=== PATIENT | female | born 1985 | race Caucasian/White ===

== ENCOUNTER 2023-05-19 16:19 | Inpatient (IN) | payer MEDICAID ==
[2023-05-19] MEDS ORDERED: Bisacodyl 10 MG Supp RECTAL PRN (16:21)
[2023-05-19] MEDS ORDERED: Water For Irrigation,Sterile 1,000 ML Container IRR PRN (16:21)
[2023-05-19] MEDS ORDERED: Lanolin 100% Cream 7 GM Tube TOP PRN (16:21)
[2023-05-19] MEDS ORDERED: ceFAZolin 2 GM in Sodium Chloride 0.9% 50 ML IV ONE (16:21)
[2023-05-19] MEDS ORDERED: Sodium Chloride 0.9% 20 ML SDV IV PRN (16:21)
[2023-05-19] MEDS ORDERED: Tranexamic Acid IN NACL,ISO-OS 1,000 MG in Premix Bag 1 BAG IV PRN ×2 (16:21)
[2023-05-19] MEDS ORDERED: Benzocaine/Menthol 20%-0.5% Spray 78 GM Cannister TOP PRN (16:21)
[2023-05-19] MEDS ORDERED: Methylergonovine 0.2 MG/1 ML Amp IM PRN (16:21)
[2023-05-19] MEDS ORDERED: Sodium Chloride 0.9% 10 ML Syringe FLUSH PRN (16:21)
[2023-05-19] MEDS ORDERED: Sodium Chloride 0.9% 2.5 ML Syringe FLUSH PRN (16:21)
[2023-05-19] MEDS ORDERED: Nalbuphine 10 MG/0.5 ML Syringe IVPUSH PRN (16:21)
[2023-05-19] MEDS ORDERED: Lidocaine 1% 50 ML MDV INJECT PRN (16:21)
[2023-05-19] MEDS ORDERED: Misoprostol 200 MCG Tab PO PRN (16:21)
[2023-05-19] MEDS ORDERED: Terbutaline 1 MG/ML SDV SUBCUT PRN (16:21)
[2023-05-19] MEDS ORDERED: Witch Hazel Medicated Pads 40/Jar TOP PRN (16:21)
[2023-05-19] MEDS ORDERED: Carboprost Tromethamine 250 MCG/1 mL Vial IM PRN (16:21)
[2023-05-19] MEDS ORDERED: Oxytocin/0.9 % Sodium Chloride 30 UNIT/500 ML BAG IV SCH ×2 (16:30)
[2023-05-19] MEDS ORDERED: Lactated Ringers 1,000 ML IV SCH (16:30)
[2023-05-19 16:42] LABS: BASOPHILS ABSOLUTE AUTO 0.03 K/uL (0.00-0.20); BASOPHILS PERCENT AUTO 0.2 % (0.0-1.0); HEMATOCRIT 39.6 % (37.0-47.0); IMMATURE GRAN PERCENT AUTO 0.6 % (0.0-0.4); LYMPHOCYTES ABSOLUTE AUTO 0.72 K/uL (1.00-4.80); LYMPHOCYTES PERCENT AUTO 4.4 % (24.0-44.0); MEAN CORPUSCULAR HEMOGLOBIN 26.3 pg (28.0-32.0); MEAN CORPUSCULAR HGB CONC 32.8 g/dL (32.0-36.0); MONOCYTES ABSOLUTE AUTO 0.49 K/uL (0.00-0.80); NEUTROPHILS ABSOLUTE AUTO 14.86 K/uL (1.80-7.70); NEUTROPHILS PERCENT AUTO 91.8 % (41.0-71.0); PLATELET COUNT,PLT 198 K/uL (150-400); RED BLOOD CELL COUNT 4.95 M/uL (4.10-5.30)
[2023-05-19 16:54] LABS: AMPHETAMINES SCREEN, URINE NEGATIVE (CUTOFF=500); BARBITURATE SCREEN,URINE NEGATIVE (CUTOFF=200); BENZODIAZEPINES SCREEN,URINE NEGATIVE (CUTOFF=150); BUPRENORPHINE SCREEN,URINE NEGATIVE (CUTOFF=10); METHADONE SCREEN, URINE NEGATIVE (CUTOFF=200); METHAMPHETAMINES SCREEN, URINE NEGATIVE (CUTOFF=500); OXYCODONE SCREEN,URINE NEGATIVE (CUT0FF=100); PCP SCREEN,URINE NEGATIVE (CUTOFF=25); THC SCREEN,URINE 20 NG/ML PRESUMPTIVE POSITIVE (CUTOFF=50)
[2023-05-19 16:58] LABS: HEMOGLOBIN A1C 8.5 %
[2023-05-19 17:10] LABS: A/G RATIO 0.5 (0.9-1.6); ALANINE AMINOTRANSFERASE,ALT 27 IU/L (14-63); ALBUMIN 2.4 g/dL (3.4-5.0); ALKALINE PHOSPHATASE 244 U/L (46-116); ASPARTATE AMNIOTRANSFERASE,AST 23 IU/L (15-37); BILIRUBIN TOTAL 0.5 mg/dL (0.2-1.0); BLOOD UREA NITROGEN,BUN 9 mg/dL (7.0-18.0); CALCIUM 8.9 mg/dL (8.5-10.1); CHLORIDE,CL 97 mmol/L (98-107); CREATININE 0.9 mg/dL (0.6-1.0); EST CRCL DRUG DOSING (CG) 75.34 mL/min; GLUCOSE RANDOM 223 mg/dL (74-106); PROTEIN TOTAL,TP 7.7 g/dL (6.4-8.2); SODIUM,NA 130 mmol/L (136-145)
[2023-05-19 17:11] LABS: ESTIMATED GFR 86 mL/min (>60)
[2023-05-19] MEDS: Ondansetron 4 MG/2 ML SDV IVPUSH PRN (17:29)
[2023-05-19] MEDS: Insulin Regular in 0.9 % NACL 100 ML IV SCH ×2 (17:30→19:33)
[2023-05-19] MEDS ORDERED: Dextrose 5%-0.9% NaCl 1,000 ML IV SCH (18:00)
[2023-05-19 18:17] LABS: C. TRACHOMATIS BY PCR NOT DETECTED; N. GONORRHOEAE BY PCR NOT DETECTED
[2023-05-19 19:38] LABS: BILIRUBIN,URINE NEGATIVE (NEGATIVE); COLOR,URINE YELLOW; GLUCOSE,URINE 100 mg/dL (NEGATIVE); KETONES,URINE >=80 mg/dL (NEGATIVE); LEUKOCYTE ESTERASE,URINE SMALL (NEGATIVE); NITRITE,URINE POSITIVE (NEGATIVE); OCCULT BLOOD,URINE NEGATIVE (NEGATIVE); PROTEIN,URINE TRACE mg/dL (NEGATIVE); UROBILINOGEN,URINE 0.2 EU/dL (<2.0)
[2023-05-19 19:40] LABS: APPEARANCE,URINE HAZY
[2023-05-20] MEDS ORDERED: ceFAZolin 2 GM in Sodium Chloride 0.9% 50 ML IV ONE (00:03)
[2023-05-20] MEDS ORDERED: Misoprostol 200 MCG Tab ONE (03:06)
[2023-05-20] MEDS ORDERED: Omeprazole 20 MG Cap.CR PO ONE (03:47)
[2023-05-20 04:37] LABS: PH,UMBILICAL ARTERIAL 7.185 (7.18-7.38)
[2023-05-20 04:38] LABS: PH,UMBILICAL VENOUS 7.229 (7.25-7.45)
[2023-05-20] MEDS ORDERED: 50% Dextrose in Water 50 ML Syringe IVPUSH PRN ×2 (04:39→13:09)
[2023-05-20] MEDS ORDERED: Glucagon,Human Recombinant 1 MG Vial IM PRN ×2 (04:39→13:09)
[2023-05-20] MEDS ORDERED: cefTRIAXone 2 GM in Sodium Chloride 0.9% 50 ML IV SCH (05:15)
[2023-05-20] MEDS: Ibuprofen 800 MG Tab PO PRN ×2 (05:58→16:49)
[2023-05-20] MEDS: Insulin Aspart 100 Units/ML 3 ML Pen SUBCUT SCH ×4 (07:58→16:51)
[2023-05-20] MEDS: Omeprazole 20 MG Cap.CR PO SCH (08:00)
[2023-05-20] MEDS: Ferrous Sulfate 325 MG Tab PO SCH ×3 (08:00→16:49)
[2023-05-20] MEDS: Prenatal Multivitamin with Calcium/Folic Acid/Iron Tab PO SCH (08:00)
[2023-05-20] MEDS: Acetaminophen 500 MG Tab PO PRN ×2 (08:00→21:30)
[2023-05-20 12:28] LABS: GROUP B STREP BY PCR NEGATIVE (NEGATIVE)
[2023-05-20] MEDS: Docusate Sodium 100 MG Cap PO PRN (21:28)
[2023-05-20] MEDS: Insulin Glargine,Hum.Rec.Anlog 100 UNIT/ML 3 ML Pen SUBCUT SCH (22:19)
[2023-05-21] MEDS: Ibuprofen 800 MG Tab PO PRN ×3 (05:09→18:12)
[2023-05-21] MEDS: Insulin Aspart 100 Units/ML 3 ML Pen SUBCUT SCH ×4 (08:09→11:54)
[2023-05-21] MEDS: Prenatal Multivitamin with Calcium/Folic Acid/Iron Tab PO SCH (08:17)
[2023-05-21] MEDS: Omeprazole 20 MG Cap.CR PO SCH (08:18)
[2023-05-21] MEDS: Ferrous Sulfate 325 MG Tab PO SCH ×2 (08:18→16:38)
[2023-05-21] MEDS ORDERED: cefTRIAXone 2 GM in Sodium Chloride 0.9% 50 ML IV SCH (16:00)
[2023-05-21] MEDS ORDERED: Sodium Chloride 0.9% 50 ML IV SCH (16:00)
[2023-05-21] MEDS: Insulin Glargine,Hum.Rec.Anlog 100 UNIT/ML 3 ML Pen SUBCUT SCH (20:58)
[2023-05-21] MEDS: Docusate Sodium 100 MG Cap PO PRN (21:01)
[2023-05-22] MEDS: Ondansetron 4 MG/2 ML SDV IVPUSH PRN (05:43)
[2023-05-22] MEDS: Ibuprofen 800 MG Tab PO PRN (05:48)
[2023-05-22] MEDS: Acetaminophen 500 MG Tab PO PRN (05:49)
[2023-05-22] MEDS: Omeprazole 20 MG Cap.CR PO SCH (07:55)
[2023-05-22] MEDS: Ferrous Sulfate 325 MG Tab PO SCH (08:18)
[2023-05-22] MEDS: Prenatal Multivitamin with Calcium/Folic Acid/Iron Tab PO SCH (08:18)
[2023-05-22] MEDS: Insulin Aspart 100 Units/ML 3 ML Pen SUBCUT SCH ×4 (08:19→11:47)
[2023-05-22] MEDS: Docusate Sodium 100 MG Cap PO PRN (08:20)
== END 2023-05-22 13:15 | disposition home or self-care (01) | DRG 805 ==
LOC: MW.OBCHECK 16:19 → MW.OB 16:19 → MW.OBCHECK 16:20 → MW.OB 16:21 → OBSVTOIN 05-20 02:57 → MW.OB 05-20 07:09
PROVIDERS: ADMIT Obstetrics & Gynecology; ATTEND Obstetrics & Gynecology
PROC: 10E0XZZ Delivery of Products of Conception, External Approach (ICD-10-PCS; principal; 2023-05-20)
PROC: 0KQM0ZZ Repair Perineum Muscle, Open Approach (ICD-10-PCS; 2023-05-20)
PROC: 10907ZC Drainage of Amniotic Fluid, Therapeutic from Products of Conception, Via Natural or Artificial Opening (ICD-10-PCS; 2023-05-20)
PROC: 3E0P7VZ Introduction of Hormone into Female Reproductive, Via Natural or Artificial Opening (ICD-10-PCS; 2023-05-20)
DX: O48.0 Post-term pregnancy (principal); O24.12 Pre-existing type 2 diabetes mellitus, in childbirth; Z37.0 Single live birth; O75.3 Other infection during labor; O99.324 Drug use complicating childbirth; N39.0 Urinary tract infection, site not specified; Z59.00 Homelessness unspecified; F12.90 Cannabis use, unspecified, uncomplicated; O70.1 Second degree perineal laceration during delivery; O66.0 Obstructed labor due to shoulder dystocia; O75.89 Other specified complications of labor and delivery; Z3A.37 37 weeks gestation of pregnancy; Z88.0 Allergy status to penicillin; Z3A.42 42 weeks gestation of pregnancy
CPT/HCPCS: 36415; 59025; 59409; 76805; 76805-26; 80053; 80305-QW; 80307; 81003; 82803; 82947; 83036; 85025; 86592; 86706; 86762; 86803; 86850; 86900; 86901; 87086; 87340; 87389; 87491; 87591; 87653; A9270-GY; J0690; J0696; J1815; J1815-GY; J2300; J2405; J2590; J3490; J7042; J7120